=== PATIENT | female | born 1995 | race African-American/Black ===

== ENCOUNTER 2020-05-05 22:46 | Emergency (ER) | payer MEDICAID, OTHER ==
[~2020-05-05] VITALS: Ht 172.7 cm; Wt 62.7 kg
[2020-05-05 23:11] LABS: BILIRUBIN,URINE NEGATIVE (NEG); CLARITY,URINE CLEAR; COLOR,URINE YELLOW; NITRITE,URINE NEGATIVE (NEG); PROTEIN,URINE NEGATIVE (NEG-TRACE); UROBILINOGEN,URINE 0.2 mg/dL (0.2 mg/dL)
[2020-05-05 23:14] LABS: RBC,URINE OCC /HPF (0-2); WBC,URINE OCC /HPF (0-4)
[2020-05-05 23:15] LABS: BACTERIA,URINE FEW /HPF (0-FEW)
[2020-05-05 23:16] LABS: AMPHETAMINE/METHAMPHETAMINE NEG (NEG); BARBITURATES NEG (NEG); BENZODIAZEPINES NEG (NEG); CANNABINOIDS NEG (NEG); COCAINE NEG (NEG); METHADONE NEG (NEG); OPIATES NEG (NEG); PHENCYCLIDINE NEG (NEG)
--- NOTE | 2020-05-05 23:27 | PHYS DOC ---
Past Medical History Past Medical History: No Pertinent History (HOLDEN SWAIN APRN) Past Surgical History: No Surgical History (HOLDEN SWAIN APRN) Smoking Status: Never Smoker Alcohol Use: None (HOLDEN SWAIN APRN) General Adult EDM: Chief Complaint: VAGINAL BLEEDING HPI: HPI: Patient is a 25 year old female 1 para 0 currently 5 to 8 weeks presenting to the ED today complaining of vaginal bleeding in that began 6 days ago which is Thursday. Patient's is interpreting for patient who speaks Ukrainian. He reports the bleeding started on Thursday of spotting. It was only noticeable when she wipes herself. He said patient was seen at one of the local clinics[facility] on Thursday, he states they did an ultrasound and told him she is very early on in and they could not see everything very well because it was early . He states they were told if the bleeding gets worse to return to the ER ED. states the bleeding has increased and she has currently used 1 pad since this morning. also said patient is complaining of low back pain as well as lower abdominal cramping type pain. Patient denies anything specifically exacerbating or relieving her pain. (HOLDEN SWAIN APRN) Review of Systems: Review of Systems: Constitutional: Denies fever or chills. [] Eyes: Denies change in visual acuity. [] HENT: Denies nasal congestion or sore throat. [] Respiratory: Denies cough or shortness of breath. [] Cardiovascular: Denies chest pain or edema. [] GI: Reports vaginal bleeding in , abdominal cramping. Nausea, vomiting, bloody stools or diarrhea. [] : Denies dysuria. [] Musculoskeletal: Reports low back pain, denies joint pain. [] Integument: Denies rash. [] Neurologic: Denies headache, focal weakness or sensory changes. [] Psychiatric: Denies depression or anxiety. [] (HOLDEN SWAIN APRN) Heart Score: Risk Factors: Risk Factors: DM, Current or recent (<one month) smoker, HTN, HLP, family history of CAD, obesity. Risk Scores: Score 0 - 3: 2.5% MACE over next 6 weeks - Discharge Home Score 4 - 6: 20.3% MACE over next 6 weeks - Admit for Clinical Observation Score 7 - 10: 72.7% MACE over next 6 weeks - Early Invasive Strategies (HOLDEN SWAIN APRN) Physical Exam: PE: Constitutional: Well developed, well nourished, no acute distress, non-toxic appearance. [] HENT: Normocephalic, atraumatic, bilateral external ears normal, oropharynx moist, no oral exudates, nose normal. [] Eyes: PERRLA, EOMI, conjunctiva normal, no discharge. [] Neck: Normal range of motion, no tenderness, supple, no stridor. [] Cardiovascular:Heart rate regular rhythm, no murmur [] Lungs & Thorax: Bilateral breath sounds clear to auscultation [] Abdomen: Bowel sounds normal, soft, no tenderness, no masses, no pulsatile lowell s. [] Pelvic exam External pelvic appears normal, cervix visualized, appears closed, no CMT, small amount of bright red blood in the vaginal vault. No adnexal tenderness Skin: Warm, dry, no erythema, no rash. [] Back: No tenderness, no CVA tenderness. [] Extremities: No tenderness, no cyanosis, no clubbing, ROM intact, no edema. [] Neurologic: Alert and oriented X 3, normal motor function, normal sensory function, no focal deficits noted. [] Psychologic: Affect normal, judgement normal, mood normal. [] (HOLDEN SWAIN APRN) PE: Constitutional: Well developed, well nourished, no acute distress, non-toxic appearance HENT: Normocephalic, atraumatic Eyes: Conjunctiva normal, no discharge Neck: Normal range of motion, no tenderness, supple Lungs & Thorax: No respiratory distress, equal chest rise and fall Abdomen: Soft, no tenderness Skin: Warm, dry, no erythema, no rash Extremities: No tenderness, ROM intact, no edema Neurologic: Alert and oriented X 3, no focal deficits noted Psychologic: Affect anxious, judgment normal (RAMANA BARCENAS DO) Current Patient Data: Labs: Laboratory Tests Test 05/05/20 22:55 05/05/20 23:03 Urine Collection Type Unknown Urine Color Yellow Urine Clarity Clear Urine pH 7.0 (<5.0-8.0) Urine Specific [place] <=1.005 (1.000-1.030) Urine Protein Negative mg/dL (NEG-TRACE) Urine Glucose (UA) Negative mg/dL (NEG) Urine Ketones (Stick) 40 mg/dL (NEG) Urine Blood Large (NEG) Urine Nitrite Negative (NEG) Urine Bilirubin Negative (NEG) Urine Urobilinogen Dipstick 0.2 mg/dL (0.2 mg/dL) Urine Leukocyte Esterase Negative (NEG) Urine RBC Occ /HPF (0-2) Urine WBC Occ /HPF (0-4) Urine Squamous Epithelial Cells Mod /LPF Urine Bacteria Few /HPF (0-FEW) Urine Opiates Screen Neg (NEG) Urine Methadone Screen Neg (NEG) Urine Barbiturates Neg (NEG) Urine Phencyclidine Screen Neg (NEG) Urine Amphetamine/Methamphetamine Neg (NEG) Urine Benzodiazepines Screen Neg (NEG) Urine Cocaine Screen Neg (NEG) Urine Cannabinoids Screen Neg (NEG) Urine Ethyl Alcohol Neg (NEG) POC Urine HCG, Qualitative Hcg positive (Negative) Microbiology 05/05/20 Wet Prep - Final, Complete Vital Signs: Vital Signs Date Time Temp Pulse Resp B/P (MAP) Pulse Ox O2 Delivery O2 Flow Rate FiO2 05/05/20 22:50 98.6 73 13 121/56 (77) 100 Room Air 98.6 (HOLDEN SWAIN APRN) EKG: EKG: [] (HOLDEN SWAIN APRN) Radiology/Procedures: Radiology/Procedures: [] (HOLDEN SWAIN APRN) Radiology/Procedures: PROCEDURE: OB < 14 WKS EXAMINATION: US PRE HYSTEROSALPINGOGRAM, 05/05/2020 11:38 PM CLINICAL INDICATION: Vaginal bleeding in TECHNIQUE: Grayscale, color and spectral Doppler ultrasound images of the pelvis via transabdominal and transvaginal approach. First trimester OB protocol. COMPARISON: None. FINDINGS: The uterus measures 11.0 x 6.1 x 4.2 cm. There is a gestational sac containing an embryo with crown-rump length of 0.83 cm, consistent with gestational age 6 weeks 6 days. heart rate is 133 bpm. There is a subchorionic hemorrhage measuring 3.8 x 3.0 x 1.6 cm. A yolk sac is visualized. The right ovary measures 4.4 x 2.7 x 2.7 cm. The left ovary measures 2.7 x 2.3 x 2.0 cm. There is a right ovarian cyst measuring 2.4 cm. The ovaries have normal color and spectral Doppler flow. No adnexal mass or free fluid. IMPRESSION: Single living intrauterine with gestational age by ultrasound 6 weeks 6 days. Small subchorionic hemorrhage. Electronically signed by: Flory Davis MD (05/06/2020 12:32 AM) [id number] (RAMANA BARCENAS DO) Course & Med Decision Making: Course & Med Decision Making Pertinent Labs and Imaging studies reviewed. (See chart for details) This is a 25-year-old female patient 1 para 0 currently 5 to 8 weeks presenting to the ED today complaining of vaginal bleeding in that began on Thursday which is 6 days ago and has progressively gotten worse. Patient states she had 2 menstrual cycles in February. On physical exam/pelvic exam patient had small amount of bright red blood in the vaginal vault. Positive urine hCG, urine analysis negative for nitrates or leukocytes. Wet prep negative for any acute findings. CBC with a normal hemoglobin and hematocrit, normal WBC. [address] Barcenas, awaiting type and screen, beta hCG and ultrasound (HOLDEN SWAIN APRN) Course & Med Decision Making 0000-signout received from Holden CRANDALL for patient with vaginal bleeding in early . Ultrasound and laboratory data pending. Labs reviewed. Blood type O+. Beta hCG obtained. Ultrasound with intrauterine with heart rate and signs of small subchorionic hemorrhage. Patient seen and evaluated by myself. A copy of ultrasound report including beta-hCG level and blood type provided to patient and her . Patient advised regarding pelvic rest. Patient stable for discharge with outpatient follow-up with PCP/[facility]. Discussed findings and plan with patient and family, who acknowledge understanding and agreement. (RAMANA BARCENAS DO) Dragon Disclaimer: Dragsuzan Disclaimer: This electronic medical record was generated, in whole or in part, using a voice recognition dictation system. (HOLDEN SWAIN APRN) Departure Departure Impression: Primary Impression: Threatened miscarriage Additional Impression: Subchorionic hemorrhage in first trimester Qualified Codes: O41.8X10 - Other specified disorders of amniotic fluid and membranes, first trimester, not applicable or unspecified; O46.8X1 - Other antepartum hemorrhage, first trimester Disposition: 01 DC HOME SELF CARE/HOMELESS Condition: STABLE Patient Instructions: Threatened Miscarriage, [id number] Attending Signature Attending Signature I have personally interviewed and examined the patient. All charts, labs, and imaging studies were reviewed. I agree with the PA/CASH ACCOUNTANT's findings, exam, and plan . (RAMANA BARCENAS DO) HOLDEN SWAIN APRN May 05, 2020 23:27 RAMANA BARCENAS DO May 06, 2020 00:40
[2020-05-05 23:38] LABS: BASO % 0 % (0-3); EOS # 0.2 x10^3/uL (0.0-0.7); EOS % 3 % (0-3); HEMOGLOBIN 13.1 g/dL (12.0-15.5); LYMPH # 2.5 x10^3/uL (1.0-4.8); LYMPH % 40 % (24-48); MEAN CORPUSCULAR HEMOGLOBIN 31 pg (25-35); MEAN CORPUSCULAR HGB CONC 34 g/dL (31-37); MEAN CORPUSCULAR VOLUME 89 fL (79-100); MONO # 0.6 x10^3/uL (0.0-1.1); MONO % 9 % (0-9); NEUT # 3.1 x10^3/uL (1.8-7.7); NEUT % 48 % (31-73); PLATELET COUNT 150 x10^3/uL (140-400); RED BLOOD COUNT 4.26 x10^6/uL (3.50-5.40); WHITE BLOOD COUNT 6.4 x10^3/uL (4.0-11.0)
[2020-05-05 23:48] LABS: CALCIUM 8.8 mg/dL (8.5-10.1); CREATININE 0.5 mg/dL (0.6-1.0); GFR 181.9; POTASSIUM 3.5 mmol/L (3.5-5.1)
[2020-05-05 23:55] LABS: ALBUMIN 3.4 g/dL (3.4-5.0); TOTAL BILIRUBIN 0.4 mg/dL (0.2-1.0); TOTAL PROTEIN 6.8 g/dL (6.4-8.2)
[2020-05-05 23:59] VITALS: BP 112/59
--- NOTE | 2020-05-06 00:35 | RAD ---
EXAMINATION: US PRE HYSTEROSALPINGOGRAM, 05/05/2020 11:38 PM CLINICAL INDICATION: Vaginal bleeding in TECHNIQUE: Grayscale, color and spectral Doppler ultrasound images of the pelvis via transabdominal a nd transvaginal approach. First trimester OB protocol. COMPARISON: None. FINDINGS: The uterus measures 11.0 x 6.1 x 4.2 cm. There is a gestational sac containing an embryo with crown-r ump length of 0.83 cm, consistent with gestational age 6 weeks 6 days. heart rate is 133 bpm. T here is a subchorionic hemorrhage measuring 3.8 x 3.0 x 1.6 cm. A yolk sac is visualized. The right ovary measures 4.4 x 2.7 x 2.7 cm. The left ovary measures 2.7 x 2.3 x 2.0 cm. There is a r ight ovarian cyst measuring 2.4 cm. The ovaries have normal color and spectral Doppler flow. No adnexal mass or free fluid. IMPRESSION: Single living intrauterine with gestational age by ultrasound 6 weeks 6 days. S mall subchorionic hemorrhage. Electronically signed by: Flory Davis MD (05/06/2020 12:32 AM) [id number]
[2020-05-07 19:09] LABS: GC PROBE Negative (Negative)
== END 2020-05-06 00:50 | disposition home or self-care (01) ==
LOC: ER 22:46
DX: O20.0 Threatened abortion (principal); O41.8X10 Other specified disorders of amniotic fluid and membranes, first trimester, not applicable or unspecified; Z3A.01 Less than 8 weeks gestation of pregnancy
CPT/HCPCS: 36415; 76801; 80053; 80307; 81001; 81025; 84702; 85025; 86850; 86900; 86901; 87491; 87591; 99284; G0480; Q0111